=== PATIENT | male | born 1950 | race Caucasian/White ===

== ENCOUNTER 2020-01-20 10:53 | Day surgery (SDC) | payer MEDICARE, BC ==
[~2020-01-20] VITALS: Ht 182.9 cm; Wt 81.8 kg
[~2020-01-20 10:53] MED LIST: ATOR10TA9 PO; CHOL10003 PO; HYDR-3240 PO; LIPA1CAP45 PO; MELO15TA6 PO; OMEP40CA42 PO
[2020-01-20] MEDS ORDERED: LACTATED RINGERS 1,000 ML IV SCH (11:16)
[2020-01-20] MEDS ORDERED: CHLORHEXIDINE 15 ML UDC MM ONE (11:30)
[2020-01-20] MEDS ORDERED: FENTANYL PF 100 MCG/2ML ONE (12:57)
[2020-01-20] MEDS ORDERED: PROPOFOL 10 MG/ML, 20ML ONE (12:57)
[2020-01-20] MEDS ORDERED: DEXAMETHASONE 4 MG/ML, 1ML ONE (13:05)
[2020-01-20] MEDS ORDERED: ROCURONIUM 10MG/ML,5ML ONE (13:26)
[2020-01-20] MEDS ORDERED: ONDANSETRON 2MG/ML, 2ML ONE (13:26)
[2020-01-20] MEDS ORDERED: SUCCINYLCHOLINE 20 MG/ML, 10ML ONE (13:26)
[2020-01-20] MEDS ORDERED: PROMETHAZINE 25 MG/ML, 1ML IV PRN (13:30)
[2020-01-20] MEDS ORDERED: LABETALOL 5MG/ML, 20ML IV PRN (13:30)
[2020-01-20] MEDS ORDERED: MEPERIDINE/PF 25MG/ML,1ML IVPush PRN (13:30)
[2020-01-20] MEDS ORDERED: HYDROmorphone 2 MG/ML, 1ML IVPush PRN (13:30)
[2020-01-20] MEDS ORDERED: ACETAMINOPHEN 325 MG TABLET PO PRN (13:30)
[2020-01-20] MEDS ORDERED: FENTANYL PF 100 MCG/2ML IV PRN (13:30)
[2020-01-20] MEDS ORDERED: hydrALAzine 20 MG/ML, 1ML IV PRN (13:30)
[2020-01-20] MEDS ORDERED: ONDANSETRON 2MG/ML, 2ML IV PRN (13:30)
[2020-01-20] MEDS ORDERED: OXYcodone 5 MG/5 ML ORAL.SOL UDC PO PRN (13:30)
[2020-01-20] MEDS ORDERED: PANTOPRAZOLE 40 MG IV IVPush SCH (14:30)
== END 2020-01-20 15:20 | disposition home or self-care (01) ==
LOC: OR 10:53
PROVIDERS: ATTEND Internal Medicine Gastroenterology
DX: K86.89 Other specified diseases of pancreas (principal); C25.1 Malignant neoplasm of body of pancreas; K29.80 Duodenitis without bleeding; K44.9 Diaphragmatic hernia without obstruction or gangrene; Z79.1 Long term (current) use of non-steroidal anti-inflammatories (NSAID); Z79.891 Long term (current) use of opiate analgesic; Z79.899 Other long term (current) drug therapy; Z87.891 Personal history of nicotine dependence; Z80.0 Family history of malignant neoplasm of digestive organs
CPT/HCPCS: 43239; 43242; 88172; 88173; 88305; 88307; 93005; C9113; J0330; J1100; J2405; J2704; J3010; J7120